=== PATIENT | male | born 1995 | race Caucasian/White ===

== ENCOUNTER 2019-03-27 15:42 | Emergency (ER) | payer BC ==
[2019-03-27 16:16] VITALS: BP 139/93
--- NOTE | 2019-03-27 16:31 | UC ---
Ear Complaint HPI - HPI Summary HPI Summary: Mr. Song has had some problems with his right ear feeling full and having decreased hearing for a couple of months. It doesn't hurt. At first it was intermittent and is now constant. He has no congestion. - History of Current Complaint Chief Complaint: UCEar Stated Complaint: RT EAR COMPLAINT Time Seen by Provider: 03/27/19 16:12 Hx Obtained From: Patient Onset/Duration: Gradual Onset Severity Initially: Mild Severity Currently: None Pain Intensity: 0 Aggravating Factors: Nothing Associated Signs/Symptoms: Positive: Hearing Loss - Allergies/Home Medications Allergies/Adverse Reactions: Allergies Allergy/AdvReac Type Severity Reaction Status Date / Time No Known Allergies Allergy Verified 03/27/19 16:17 Home Medications: Home Medications NK [No Home Medications Reported] 03/27/19 [History Confirmed 03/27/19] PMH/Surg Hx/FS Hx/Imm Hx Previously Healthy: Yes - Surgical History Surgical History: None - Social History Alcohol Use: Weekly Substance Use Type: Marijuana Substance Use Comment - Amount & Last Used: once a month Smoking Status (MU): Current Every Day Smoker Amount Used/How Often: < 1/2 pack Review of Systems All Other Systems Reviewed And Are Negative: Yes ENT: Positive: Other - Full feeling and decreased hearing Physical Exam - Summary Physical Exam Summary: He is nontoxic in appearance with stable vital signs Triage Information Reviewed: Yes Appearance: Well-Appearing, No Pain Distress Vital Signs: Initial Vital Signs Temp 98.1 F 03/27/19 16:12 Pulse 103 03/27/19 16:12 Resp 14 03/27/19 16:12 BP 139/93 03/27/19 16:12 Pulse Ox 100 03/27/19 16:12 Vital Signs Reviewed: Yes Eye Exam: Normal ENT: Positive: Pharynx normal, Other - Hard impacted cerumen on the right and WNL on the left.. Negative: Nasal congestion, Nasal drainage Ear Complaint Course/Dx - Course Course Of Treatment: We discussed trying to get it out now or using OTC methods at home and he chose to try it on his own for now. - Differential Dx/Diagnosis Provider Diagnosis: Impacted cerumen of right ear Discharge ED - Sign-Out/Discharge Documenting (check all that apply): Patient Departure All imaging exams completed and their final reports reviewed: No Studies - Discharge Plan Condition: Stable Disposition: HOME Patient Education Materials: Cerumen Impaction (ED) Referrals: No Primary Care Phys,NOPCP [Primary Care Provider] - - Billing Disposition and Condition Condition: STABLE Disposition: Home
== END 2019-03-27 16:38 | disposition home or self-care (01) ==
LOC: UCCORT 15:42
DX: H61.21 Impacted cerumen, right ear (principal); F17.210 Nicotine dependence, cigarettes, uncomplicated
CPT/HCPCS: 99201; G0463